=== PATIENT | male | born 1960 ===

== ENCOUNTER 2020-09-21 13:35 | Outpatient (CLI) | payer BC ==
[2020-09-21 15:39] LABS: Anion Gap 14 mmol/L (10-20); BUN (Urea Nitrogen) 15 mg/dL (8.4-25.7); Calc. Creatinine Clearance 0 mL/min (70-130); Carbon Dioxide 23 mmol/L (23-31); Chloride 102 mmol/L (98-107); Glucose 92 mg/dL (80-115); Potassium 4.3 mmol/L (3.5-5.1); Sodium 135 mmol/L (136-145)
[2020-09-21 15:47] LABS: Prothrombin Time 10.9 sec (9.5-12.1)
[2020-09-21 16:10] LABS: #Eosinphils 0.1 10x3/uL (0.0-0.5); #Monocytes 0.8 10x3/uL (0.0-1.1); #Neutrophils 5.8 10x3/uL (1.5-8.4); %Basophils 0.3 % (0.0-2.0); %Eosinophils 0.7 % (0.0-6.0); %Lymphocytes 10.2 % (18.0-47.0); %Monocytes 11.3 % (0.0-10.0); %Neutrophils 77.4 % (40.0-75.0); Bilirubin Neg (Negative); Blood, Urine 50 (Negative); Clarity Clear (Clear); Glucose, Urine (Dipstick) Normal (Negative); Hemoglobin 17.3 g/dL (13.5-17.5); Ketone, Urine 5 mg/dL (Negative); Leukocyte Negative (Negative); Mean Corpuscular HGB CONC 33.3 g/dL (32.0-36.0); Mean Corpuscular Volume 86.9 fl (81.2-95.1); Mean Platelet Volume 10.5 fl (7.4-10.4); Nitrite Negative (Negative); Platelet Count 131 10x3/uL (150-450); Protein, Urine (Dipstick) 15 mg/dl (Neg-Trace); RBC Distribution Width 12.6 % (11.5-14.5); Red Blood Cell (RBC) Count 5.97 10x6/uL (4.32-5.72); White Blood Cell (WBC) Count 7.5 10x3/uL (3.5-10.5)
[2020-09-21 16:36] LABS: Bacteria/HPF Rare-Few HPF (None Seen); Mucous/LPF Rare LPF (<2+); Squamous Epithelial 0-3 HPF (0-3); WBC/HPF 0-3 HPF (0-3)
[2020-09-22 02:31] LABS: SARS-CoV-2 PCR by NAA Not Detected (NotDetected)
== END 2020-09-21 13:36 | disposition home or self-care (01) ==
LOC: LABBT 13:35
PROVIDERS: ATTEND Orthopaedic Surgery
DX: Z01.818 Encounter for other preprocedural examination (principal); M17.11 Unilateral primary osteoarthritis, right knee; Z20.822 Contact with and (suspected) exposure to COVID-19
CPT/HCPCS: 80048; 81001; 85025; 85610; 86850; 86900; 86901; 87081; 87635; 93005; 93010; U0003; U0005

== ENCOUNTER 2020-09-21 13:45 | Inpatient (IN) | payer BC ==
[2020-09-23 11:46] VITALS: BMI 31.8
[2020-09-26] MEDS ORDERED: Tranexamic Acid 1,000 MG/10 ML VIAL ONE ×2 (07:39→11:40)
[2020-09-26] MEDS ORDERED: Vancomycin 1.5 GRAM/300 ML BAG 1.5 GM in Premix Bag 1 BAG IVPB SCH ×3 (08:15→20:00)
[2020-09-26] MEDS ORDERED: Midazolam HCl 2 mg/2 ml Vial ONE (08:30)
[2020-09-26] MEDS ORDERED: Fentanyl 100 MCG/2 ML VIAL ONE ×4 (08:30→12:02)
[2020-09-26] MEDS ORDERED: Bupivacaine PF 0.5% 30 ML VIAL ONE (09:20)
[2020-09-26] MEDS ORDERED: Lidocaine 1% PF 5 ML VIAL ONE (09:33)
[2020-09-26] MEDS ORDERED: Ondansetron PF 4 MG/2 ML Vial ONE (09:33)
[2020-09-26] MEDS ORDERED: ePHEDrine Sulfate 50 MG/10 ML VIAL ONE (09:33)
[2020-09-26] MEDS ORDERED: PROPOFOL 200 MG/20 ML VIAL ONE (09:33)
[2020-09-26] MEDS ORDERED: Bupivacaine HCl 0.5%/Epinephrine 1:200,000/PF 30 ml Vial ONE (09:33)
[2020-09-26] MEDS ORDERED: Ketorolac Tromethamine 30 MG/ML VIAL ONE (09:33)
[2020-09-26] MEDS ORDERED: Ropivacaine 2% HCl/PF (20 MG/10 ML VIAL) ONE (09:33)
[2020-09-26] MEDS ORDERED: Dexamethasone 20 MG/5 ML VIAL ONE (09:33)
[2020-09-26] MEDS ORDERED: Ropivacaine HCl/PF 250 ML in Premix Bag 1 BAG NERVE BLCK SCH ×3 (10:00→17:30)
[2020-09-26] MEDS ORDERED: HYDROcodone/Acetaminophen 10/325 mg Tablet PO PRN ×5 (10:00→17:18)
[2020-09-26] MEDS ORDERED: Zolpidem Tartrate 5 MG TAB PO PRN ×4 (10:00→17:19)
[2020-09-26] MEDS ORDERED: Fentanyl 100 MCG/2 ML VIAL IV PRN ×4 (10:00→17:19)
[2020-09-26] MEDS ORDERED: Ondansetron PF 4 MG/2 ML Vial IVP PRN ×4 (10:00→17:19)
[2020-09-26] MEDS ORDERED: Promethazine HCl 25 MG/ML VIAL IM PRN ×5 (10:00→17:19)
[2020-09-26] MEDS ORDERED: traMADol HCl 50 MG TAB PO PRN ×6 (10:00→17:19)
[2020-09-26] MEDS ORDERED: PACU-Morphine 4MG/ML VIAL SLOW IVP PRN (10:28)
[2020-09-26] MEDS ORDERED: HYDROmorphone 2 MG/ML VIAL SLOW IVP PRN (10:28)
[2020-09-26] MEDS ORDERED: Ondansetron HCl/PF 4 MG/2 ML Vial IVP PRN (10:28)
[2020-09-26] MEDS ORDERED: Promethazine HCl 25 MG/ML VIAL SLOW IVP PRN (10:28)
[2020-09-26] MEDS ORDERED: Acetaminophen 325 MG TAB PO PRN ×3 (11:23→17:20)
[2020-09-26] MEDS ORDERED: diphenhydrAMINE 25 MG CAP PO PRN ×2 (11:23→17:13)
[2020-09-26] MEDS ORDERED: Tranexamic Acid 1,000 MG in Sodium Chloride 0.9% 100 ML IVPB SCH (11:30)
[2020-09-26] MEDS ORDERED: Sodium Chloride 0.9% 1,000 ML IV SCH (11:30)
[2020-09-26] MEDS ORDERED: Ketorolac Tromethamine 30 MG/ML VIAL IVP SCH ×2 (12:00→18:00)
[2020-09-26] MEDS ORDERED: Bupivacaine 0.5% 10 ML VIAL ONE (12:17)
[2020-09-26] MEDS ORDERED: CEFAZOLIN 2 GM in Premix Bag 1 BAG IVPB SCH (16:00)
[2020-09-26] MEDS: CEFAZOLIN 2 GM in Premix Bag 1 BAG IVPB SCH (17:43)
[2020-09-26] MEDS: Ketorolac Tromethamine 30 MG/ML VIAL IVP SCH ×2 (17:44→23:23)
[2020-09-26] MEDS: Sodium Chloride 0.9% 1,000 ML IV SCH (17:45)
[2020-09-26] MEDS: Senokot S 8.6-50 MG TAB PO SCH (20:15)
[2020-09-26] MEDS: Aspirin 81 mg Enteric Coated Tablet PO SCH (20:15)
[2020-09-26] MEDS: Ferrous Gluconate 324 MG TAB PO SCH (20:16)
[2020-09-26] MEDS ORDERED: Senokot S 8.6-50 MG TAB PO SCH (21:00)
[2020-09-26] MEDS ORDERED: Ferrous Gluconate 324 MG TAB PO SCH (21:00)
[2020-09-26] MEDS ORDERED: Aspirin 81 mg Enteric Coated Tablet PO SCH (21:00)
[2020-09-27] MEDS: CEFAZOLIN 2 GM in Premix Bag 1 BAG IVPB SCH (01:54)
[2020-09-27] MEDS: Sodium Chloride 0.9% 1,000 ML IV SCH ×2 (03:17→14:19)
[2020-09-27] MEDS: Ketorolac Tromethamine 30 MG/ML VIAL IVP SCH ×5 (05:40→23:58)
[2020-09-27] MEDS: Aspirin 81 mg Enteric Coated Tablet PO SCH ×2 (08:27→20:02)
[2020-09-27] MEDS: Ferrous Gluconate 324 MG TAB PO SCH ×2 (08:27→20:01)
[2020-09-27] MEDS: Senokot S 8.6-50 MG TAB PO SCH ×2 (08:28→20:00)
[2020-09-27] MEDS: HYDROcodone/Acetaminophen 10/325 mg Tablet PO PRN ×2 (08:28→19:20)
[2020-09-27] MEDS: Lisinopril 20 MG TAB PO SCH (08:30)
[2020-09-27] MEDS: Multivitamin W/ Minerals 1 TAB PO SCH (08:30)
[2020-09-27] MEDS ORDERED: Lisinopril 20 MG TAB PO SCH (09:00)
[2020-09-27] MEDS ORDERED: Multivitamin W/ Minerals 1 TAB PO SCH (09:00)
[2020-09-27] MEDS ORDERED: Ketorolac Tromethamine 30 MG/ML VIAL ONE (13:29)
[2020-09-28] MEDS: Sodium Chloride 0.9% 1,000 ML IV SCH ×2 (03:32→08:48)
[2020-09-28 05:58] LABS: Hemoglobin 12.7 g/dL (14.0-18.0); Mean Corpuscular HGB CONC 34.2 g/dL (32.0-36.0); Mean Corpuscular Hemoglobin 30.3 pg (27.0-31.0); Mean Corpuscular Volume 88.6 fL (78.0-98.0); Mean Platelet Volume 7.9 fL (7.4-10.4); Platelet Count 131 thou/uL (130-400); RBC Distribution Width 11.6 % (11.5-14.5); White Blood Cell (WBC) Count 7.7 thou/uL (4.8-10.8)
[2020-09-28] MEDS: Ketorolac Tromethamine 30 MG/ML VIAL IVP SCH ×2 (06:20→11:19)
[2020-09-28] MEDS: Aspirin 81 mg Enteric Coated Tablet PO SCH (08:46)
[2020-09-28] MEDS: Ferrous Gluconate 324 MG TAB PO SCH (08:46)
[2020-09-28] MEDS: Multivitamin W/ Minerals 1 TAB PO SCH (08:47)
[2020-09-28] MEDS: Senokot S 8.6-50 MG TAB PO SCH (08:47)
[2020-09-28] MEDS: Lisinopril 20 MG TAB PO SCH (08:47)
[2020-09-28 11:39] VITALS: BP 151/90; TEMP 98.7
== END 2020-09-28 14:00 | disposition home or self-care (01) | DRG 470 ==
LOC: SJJU 09-26 07:03 → UNDODISIN 09-26 13:00
PROVIDERS: ADMIT Orthopaedic Surgery; ATTEND Orthopaedic Surgery
PROC: 0SRC0J9 Replacement of Right Knee Joint with Synthetic Substitute, Cemented, Open Approach (ICD-10-PCS; principal; 2020-09-26)
DX: M17.11 Unilateral primary osteoarthritis, right knee (principal); Z20.822 Contact with and (suspected) exposure to COVID-19; I10 Essential (primary) hypertension; G47.33 Obstructive sleep apnea (adult) (pediatric); F41.9 Anxiety disorder, unspecified; Z99.89 Dependence on other enabling machines and devices; Z87.891 Personal history of nicotine dependence; Z79.899 Other long term (current) drug therapy
CPT/HCPCS: 36415; 85027; 86850; 86900; 86901; C1713; C1776; J0690; J1100; J1885; J2250; J2405; J2704; J2795; J3010; J3370; J3490; S0020